=== PATIENT | female | born 1990 | race Caucasian/White ===

== ENCOUNTER → 2018-07-03 | Outpatient (CLI) | payer OTHER | LOC: YCFC.O 10:01 | DX: J20.9 Acute bronchitis, unspecified (principal) ==

== ENCOUNTER → 2020-07-12 | Outpatient (CLI) | payer OTHER | LOC: GMA CAST 14:40 | PROVIDERS: ATTEND Family Medicine Sports Medicine | DX: R56.9 Unspecified convulsions (principal); R53.83 Other fatigue ==